=== PATIENT | female | born 1955 | race Two or more races ===

== ENCOUNTER 2019-04-22 23:24 | Inpatient (IN) | payer OTHER ==
[~2019-04-22] VITALS: Ht 152.4 cm; Wt 95.7 kg
[2019-04-23 00:10] VITALS: BP 149/73
[2019-04-23] MEDS ORDERED: MAG HYDROX/AL HYDROX/SIMETH 30 ML UDC PO PRN (00:30)
[2019-04-23] MEDS ORDERED: INSULIN REGULAR, HUMAN 100 UNIT/ML 3 ML VIAL SQ PRN (00:30)
[2019-04-23] MEDS ORDERED: HYDROCODONE/APAP 5/325MG 1 EACH TABLET PO PRN (00:30)
[2019-04-23] MEDS ORDERED: MAGNESIUM HYDROXIDE 30 ML UDC PO PRN (00:30)
[2019-04-23] MEDS ORDERED: Z GUARD REMEDY 2 OZ OINT TP PRN (00:30)
[2019-04-23] MEDS ORDERED: ONDANSETRON HCL/PF 4 MG/2 ML VIAL IVP PRN (00:30)
[2019-04-23] MEDS ORDERED: ACETAMINOPHEN 325 MG TABLET PO PRN (00:30)
[2019-04-23] MEDS ORDERED: ZOLPIDEM TARTRATE 5 MG TABLET PO PRN (00:30)
[2019-04-23] MEDS ORDERED: BLOOD SUGAR DIAGNOSTIC 1 EACH STRIP IN SCH (00:30)
[2019-04-23] MEDS ORDERED: DEXTROSE 50%-WATER 50 ML DISP.SYRIN IV PRN ×2 (00:30→01:00)
[2019-04-23 01:13] VITALS: BP 149/73
[2019-04-23] MEDS ORDERED: PENTOXIFYLLINE 400 MG TABLET.SA PO SCH (01:30)
[2019-04-23] MEDS ORDERED: LORAZEPAM 1 MG TABLET PO PRN (01:30)
[2019-04-23] MEDS: BLOOD SUGAR DIAGNOSTIC 1 EACH STRIP IN SCH ×5 (02:31→21:45)
[2019-04-23 04:00] VITALS: BP 158/81
[2019-04-23] MEDS: INSULIN REGULAR, HUMAN 100 UNIT/ML 3 ML VIAL SQ PRN ×2 (06:43→11:49)
[2019-04-23 07:46] LABS: BASOPHILS # (AUTO) 0.1 /CMM (0.0-0.2); BASOPHILS % (AUTO) 0.8 % (0.0-2.0); EOSINOPHILS % (AUTO) 3.4 % (0.0-6.0); HEMATOCRIT 33 % (33-45); LYMPHOCYTES # (AUTO) 1.6 /CMM (0.8-4.8); LYMPHOCYTES % (AUTO) 20.4 % (20.0-44.0); MEAN CORPUSCULAR HGB CONC 33 g/dl (31.0-36.0); MEAN CORPUSCULAR VOLUME 85 fL (82-100); MONOCYTES # (AUTO) 0.5 /CMM (0.1-1.30); MONOCYTES % (AUTO) 6.3 % (2.0-12.0); NEUTROPHILS # (AUTO) 5.5 /CMM (1.8-8.9); NEUTROPHILS % (AUTO) 69.1 % (43.0-81.0); PLATELET COUNT (AUTO) 328 /CMM (150-450); RED BLOOD CELL COUNT(AUTO) 3.88 MIL/uL (4.0-5.2); WHITE BLOOD COUNT (AUTO) 7.9 K/uL (4.3-11.0)
[2019-04-23 07:53] LABS: CALCIUM, SERUM 8.4 mg/dL (8.5-10.1); MAGNESIUM 1.9 mg/dL (1.8-2.4); PHOSPHORUS 2.8 mg/dL (2.5-4.9); POTASSIUM 3.5 mmol/L (3.5-5.1)
[2019-04-23 08:00] VITALS: BP 187/91
[2019-04-23] MEDS ORDERED: CELE200C PO (08:38)
[2019-04-23] MEDS ORDERED: GABA-534 PO (08:38)
[2019-04-23] MEDS ORDERED: RANI150T8 PO (08:38)
[2019-04-23] MEDS ORDERED: AMLO5TAB9 PO (08:38)
[2019-04-23] MEDS ORDERED: LOSA100T31 PO (08:38)
[2019-04-23] MEDS ORDERED: ERGO500014 PO (08:38)
[2019-04-23] MEDS ORDERED: HYDR25TA4 PO (08:38)
[2019-04-23] MEDS ORDERED: DULO30CA2 PO (08:38)
[2019-04-23] MEDS ORDERED: ATOR40TA PO (08:38)
[2019-04-23] MEDS ORDERED: PENT400T17 PO (08:38)
[2019-04-23] MEDS ORDERED: ASPI-1169 PO (08:38)
[2019-04-23] MEDS ORDERED: LORA10TA7 PO (08:38)
[2019-04-23] MEDS ORDERED: ESCI10TA PO (08:38)
[2019-04-23] MEDS ORDERED: INSU100I34 SQ (08:38)
[2019-04-23] MEDS ORDERED: CLOP75TA15 PO (08:38)
[2019-04-23] MEDS ORDERED: LORA2TAB PO (08:38)
[2019-04-23] MEDS ORDERED: FERR325T23 PO (08:38)
[2019-04-23] MEDS ORDERED: OMEG1CAP55 PO (08:38)
[2019-04-23] MEDS ORDERED: INSU100I26 SQ (08:38)
[2019-04-23] MEDS ORDERED: TRAM50TA2 PO (08:38)
[2019-04-23] MEDS ORDERED: DOCU-141 PO (08:38)
[2019-04-23] MEDS ORDERED: ASPIRIN EC 81 MG TABLET.DR PO SCH (09:00)
[2019-04-23] MEDS: ASPIRIN 81 MG TAB.CHEW PO SCH (09:17)
[2019-04-23] MEDS: GABAPENTIN 400 MG CAPSULE PO SCH ×3 (09:17→17:01)
[2019-04-23] MEDS: CLOPIDOGREL BISULFATE 75 MG TABLET PO SCH (09:17)
[2019-04-23] MEDS: HYDROCHLOROTHIAZIDE 25 MG TABLET PO SCH (09:18)
[2019-04-23] MEDS: MELOXICAM 7.5 MG TABLET PO SCH (09:18)
[2019-04-23] MEDS ORDERED: ATORVASTATIN 40 MG TABLET PO SCH ×3 (10:00→22:00)
[2019-04-23] MEDS ORDERED: TRAMADOL HCL 50 MG TABLET PO PRN (10:00)
[2019-04-23] MEDS ORDERED: ASPIRIN 81 MG TAB.CHEW PO SCH (10:00)
[2019-04-23] MEDS ORDERED: CLOPIDOGREL BISULFATE 75 MG TABLET PO SCH (10:00)
[2019-04-23] MEDS ORDERED: DOCUSATE SODIUM 100 MG CAPSULE PO PRN (10:00)
[2019-04-23] MEDS: DULOXETINE HCL 30 MG CAPSULE.DR PO SCH (10:42)
[2019-04-23] MEDS: VALSARTAN 80 MG TABLET PO SCH (10:42)
[2019-04-23] MEDS: ESCITALOPRAM OXALATE (10 MG) 10 MG TABLET PO SCH (10:42)
[2019-04-23] MEDS: AMLODIPINE BESYLATE 5 MG TABLET PO SCH (10:43)
[2019-04-23] MEDS: METOPROLOL TARTRATE 50 MG TABLET PO SCH ×2 (11:39→17:03)
[2019-04-23] MEDS ORDERED: IOHEXOL-350 100 ML VIAL IV ONE ×2 (12:38→13:49)
[2019-04-23] MEDS ORDERED: CT SWABBABLE VALVE TRANS SET 1 EA INFUS.SET MC ONE (12:39)
[2019-04-23] MEDS: METOPROLOL TARTRATE INJ 5 MG/5 ML AMPUL IVP PRN ×10 (12:47→13:32)
[2019-04-23] MEDS ORDERED: METOPROLOL TARTRATE INJ 5 MG/5 ML AMPUL ONE ×5 (12:49→13:14)
[2019-04-23] MEDS ORDERED: NITROGLYCERIN 0.4 MG/TAB BOTTLE SL ONE ×2 (13:00→14:00)
[2019-04-23] MEDS: PENTOXIFYLLINE 400 MG TABLET.SA PO SCH ×2 (13:00→18:58)
[2019-04-23] MEDS ORDERED: IV NS 0.9% 500 ML IV PRN (13:00)
[2019-04-23] MEDS ORDERED: Medication Not On Formulary EA (Omega-3 Acid Ethyl Esters (Lovaza) 2 GM) PO SCH (17:00)
[2019-04-23] MEDS: FERROUS SULFATE (325 MG) 325 MG/TAB TABLET PO SCH (17:01)
[2019-04-23] MEDS: INSULIN ASPART/LISPRO 100 UNIT/ML CARTRIDGE SQ SCH (17:32)
[2019-04-23 20:00] VITALS: BP 139/58
[2019-04-23 20:07] VITALS: BP 139/58
[2019-04-23] MEDS: *INSULIN REGULAR(HUMULIN R)HUM 100 UNIT/ML VIAL SQ PRN (21:51)
[2019-04-23] MEDS ORDERED: INSULIN GLARGINE, 100 UNIT/ML CARTRIDGE SQ SCH (22:00)
[2019-04-23] MEDS ORDERED: GABAPENTIN 300 MG CAPSULE PO SCH (22:00)
[2019-04-24] MEDS: METOPROLOL TARTRATE 50 MG TABLET PO SCH ×3 (00:58→12:19)
[2019-04-24] MEDS: BLOOD SUGAR DIAGNOSTIC 1 EACH STRIP IN SCH ×2 (06:01→12:22)
[2019-04-24 06:32] LABS: BASOPHILS # (AUTO) 0.1 /CMM (0.0-0.2); BASOPHILS % (AUTO) 0.9 % (0.0-2.0); EOSINOPHILS % (AUTO) 4.8 % (0.0-6.0); HEMATOCRIT 33 % (33-45); HEMOGLOBIN 11.1 g/dL (11.5-14.8); LYMPHOCYTES # (AUTO) 1.8 /CMM (0.8-4.8); LYMPHOCYTES % (AUTO) 25.4 % (20.0-44.0); MEAN CORPUSCULAR HGB CONC 33 g/dl (31.0-36.0); MEAN CORPUSCULAR VOLUME 85 fL (82-100); MONOCYTES # (AUTO) 0.5 /CMM (0.1-1.30); MONOCYTES % (AUTO) 7.1 % (2.0-12.0); NEUTROPHILS # (AUTO) 4.4 /CMM (1.8-8.9); NEUTROPHILS % (AUTO) 61.8 % (43.0-81.0); PLATELET COUNT (AUTO) 368 /CMM (150-450); RED BLOOD CELL COUNT(AUTO) 3.93 MIL/uL (4.0-5.2)
[2019-04-24 06:47] LABS: ALBUMIN 2.9 g/dL (3.4-5.0); BILIRUBIN,TOTAL 0.2 mg/dL (0.2-1.0); CALCIUM, SERUM 8.3 mg/dL (8.5-10.1); CREATININE 1.1 mg/dL (0.6-1.3); MAGNESIUM 2.1 mg/dL (1.8-2.4); PHOSPHORUS 3.5 mg/dL (2.5-4.9); POTASSIUM 3.4 mmol/L (3.5-5.1); TOTAL PROTEIN, SERUM 6.5 g/dL (6.4-8.2)
[2019-04-24 08:00] VITALS: BP 170/73
[2019-04-24] MEDS: INSULIN ASPART/LISPRO 100 UNIT/ML CARTRIDGE SQ SCH (09:00)
[2019-04-24] MEDS ORDERED: FAMOTIDINE (20 MG) 20 MG TABLET PO SCH (09:00)
[2019-04-24] MEDS ORDERED: LORATADINE 10 MG TABLET PO SCH (09:00)
[2019-04-24] MEDS ORDERED: Medication Not On Formulary EA (Losartan Potassium 100 MG) PO SCH (09:00)
[2019-04-24] MEDS ORDERED: CELECOXIB 100 MG CAPSULE PO SCH (09:00)
[2019-04-24] MEDS: PENTOXIFYLLINE 400 MG TABLET.SA PO SCH ×2 (09:52→12:10)
[2019-04-24] MEDS: VALSARTAN 80 MG TABLET PO SCH (09:52)
[2019-04-24] MEDS: GABAPENTIN 400 MG CAPSULE PO SCH ×2 (09:53→12:10)
[2019-04-24] MEDS: HYDROCHLOROTHIAZIDE 25 MG TABLET PO SCH (09:53)
[2019-04-24] MEDS: DULOXETINE HCL 30 MG CAPSULE.DR PO SCH (09:53)
[2019-04-24] MEDS: AMLODIPINE BESYLATE 5 MG TABLET PO SCH (09:54)
[2019-04-24] MEDS: FERROUS SULFATE (325 MG) 325 MG/TAB TABLET PO SCH (09:54)
[2019-04-24] MEDS: MELOXICAM 7.5 MG TABLET PO SCH (09:54)
[2019-04-24] MEDS: ASPIRIN 81 MG TAB.CHEW PO SCH (09:54)
[2019-04-24] MEDS: ESCITALOPRAM OXALATE (10 MG) 10 MG TABLET PO SCH (10:02)
[2019-04-24] MEDS: CLOPIDOGREL BISULFATE 75 MG TABLET PO SCH (10:07)
[2019-04-24] MEDS ORDERED: POTASSIUM CHLORIDE 20 MEQ TAB.PRT.SR PO SCH (11:00)
[2019-04-24] MEDS: *INSULIN REGULAR(HUMULIN R)HUM 100 UNIT/ML VIAL SQ PRN (12:17)
[2019-04-24 16:00] VITALS: BP 184/92
[2019-04-25] MEDS ORDERED: ERGOCALCIFEROL (VITAMIN D 2) 50,000 UNIT CAPSULE PO SCH (10:00)
== END 2019-04-24 18:11 | disposition home or self-care (01) | DRG 203 ==
LOC: TELE 04-23 00:03 → MED 04-23 08:52
PROVIDERS: ADMIT Internal Medicine; ATTEND Nurse Practitioner Acute Care
DX: M94.0 Chondrocostal junction syndrome [Tietze] (principal); N17.0 Acute kidney failure with tubular necrosis; E11.40 Type 2 diabetes mellitus with diabetic neuropathy, unspecified; E11.51 Type 2 diabetes mellitus with diabetic peripheral angiopathy without gangrene; E78.5 Hyperlipidemia, unspecified; I16.0 Hypertensive urgency; E66.01 Morbid (severe) obesity due to excess calories; Z68.41 Body mass index [BMI] 40.0-44.9, adult; Z89.422 Acquired absence of other left toe(s); E11.65 Type 2 diabetes mellitus with hyperglycemia; Z79.4 Long term (current) use of insulin; E44.1 Mild protein-calorie malnutrition
CPT/HCPCS: 36415; 75574; 80048-TC; 80053-TC; 80061-TC; 82962-TC; 83735-TC; 84100-TC; 84484-TC; 85025-TC; 87081-TC; 93307-TC; G0378; J1815; J3490; Q9967